=== PATIENT | female | born 1955 | race Caucasian/White ===

== ENCOUNTER 2017-06-25 22:05 | Inpatient (IN) | payer OTHER ==
[~2017-06-25] VITALS: Ht 165.1 cm; Wt 109.6 kg
[~2017-06-25 22:05] MED LIST: FERROUS SULFAT325 MG PO; NORVASC10 MG PO; PRILOSEC20 MG PO; ZESTORETIC 20-1 EAC1 PO
[2017-06-26 06:10] VITALS: BP 119/56
[2017-06-26 12:57] VITALS: BP 95/51
[2017-06-26 15:47] VITALS: BP 99/58
[2017-06-26 19:45] VITALS: BP 97/47
[2017-06-26 21:45] VITALS: BP 115/58
[2017-06-27 00:09] VITALS: BP 95/50
[2017-06-27 04:00] VITALS: BP 88/51
[2017-06-27 06:42] LABS: HEMATOCRIT 33.8 % (36.0-46.0); MCV 88.5 FL (83-99)
[2017-06-27 08:00] VITALS: BP 96/52
[2017-06-27] MEDS ORDERED: SENNA PLUS TAB1 EACH PO (09:52)
[2017-06-27] MEDS ORDERED: OXYCODONE HCL5 MG PO (09:52)
[2017-06-27] MEDS ORDERED: ELIQUIS2.5 MG PO (09:52)
[2017-06-27 12:20] VITALS: BP 117/57
[2017-06-27 15:46] VITALS: BP 118/56
[2017-06-27 19:19] VITALS: BP 106/55
[2017-06-28 00:20] VITALS: BP 113/58
[2017-06-28 04:20] VITALS: BP 115/60
[2017-06-28 05:53] LABS: HEMATOCRIT 32.5 % (36.0-46.0)
[2017-06-28 08:15] VITALS: BP 110/79
[2017-06-28 12:00] VITALS: BP 135/63
== END 2017-06-28 13:21 | disposition home health service (06) | DRG 470 ==
LOC: ENRESERV 22:05 → 2SOUTH 06-26 05:37 → 3WEST 06-26 12:31 → 2SOUTH 06-26 14:50 → 3WEST 06-28 13:21
PROVIDERS: Orthopaedic Surgery
PROC: 0SRB04A Replacement of Left Hip Joint with Ceramic on Polyethylene Synthetic Substitute, Uncemented, Open Approach (ICD-10-PCS; principal; 2017-06-26)
DX: M16.12 Unilateral primary osteoarthritis, left hip (principal); I95.9 Hypotension, unspecified; I12.9 Hypertensive chronic kidney disease with stage 1 through stage 4 chronic kidney disease, or unspecified chronic kidney disease; N18.9 Chronic kidney disease, unspecified; K21.9 Gastro-esophageal reflux disease without esophagitis; E66.9 Obesity, unspecified; Z68.39 Body mass index [BMI] 39.0-39.9, adult
CPT/HCPCS: 73501; 85014; 85018; J0131; J0690; J1170; J2250; J2405; J7050; J7120; Q0175